=== PATIENT | female | born 1965 | race Caucasian/White ===

== ENCOUNTER 2021-01-30 18:19 | Emergency (ER) | payer OTHER ==
[2021-01-30] MEDS ORDERED: Lidocaine 1% with EPINEPHrine 1:100,000 50 ML MDV SUBCUT STA (18:55)
[2021-01-30] MEDS ORDERED: Ketorolac 30 MG/ML SDV IM ONE (18:55)
[2021-01-30] MEDS ORDERED: Bacitracin Oint 1 GM U/D Packet TOP ONE (19:06)
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
== END 2021-01-30 21:17 | disposition home or self-care (01) ==
LOC: JP.ED 18:19
DX: S81.012A Laceration without foreign body, left knee, initial encounter (principal); Z88.5 Allergy status to narcotic agent; Z88.0 Allergy status to penicillin; V29.9XXA Motorcycle rider (driver) (passenger) injured in unspecified traffic accident, initial encounter; Y93.55 Activity, bike riding
CPT/HCPCS: 12035; 96372; 99282; J1885